=== PATIENT | male | born 1965 | race Caucasian/White ===

== ENCOUNTER → 2024-05-03 09:18 | Outpatient (REF) | payer OTHER, SELFPAY | LOC: PAVMRI 09:18 | PROVIDERS: ATTENDING PHYSICIAN Otolaryngology; FAMILY PHYSICIAN Internal Medicine | DX: H90.41 Sensorineural hearing loss, unilateral, right ear, with unrestricted hearing on the contralateral side (principal) | CPT/HCPCS: 70553; A9575 ==